=== PATIENT | male | born 1945 | race Caucasian/White ===

== ENCOUNTER 2017-11-12 05:07 | Observation (INO) | payer MEDICARE ==
[~2017-11-12] VITALS: Ht 172.7 cm; Wt 80.9 kg
--- NOTE | ~2017-11-12 | HEMODYNAMI ---
PATIENT:ELY VILLALOBOS MEDICAL RECORD: [id number] : 49 LOCATION:[facility] D.2116 ADMISSION DATE: 11/12/17 Generatedon:11/12/201710:37 Patient name: ELY VILLALOBOS Patient #: [id number] SSN: : 1945 Date of study: 11/12/2017 Page: Of Hemodynamic Procedure Report Patient Data Patient Demographics Procedure consent was obtained First Name: ELY Gender: Male Last Name: GRISELDA : 1945 Middle Initial: ANA Age: 72 year(s) Patient #: [id number] Race: Additional ID: [id number] Contact details [address]: [address] [place] [address] State: [place] City: [place] Zip code: [address] Past Medical History Allergies Allergen Reaction Date Comments Reported Other allergy 07/22/2015 VICADIN Vicodin 08/19/2016 Other allergy 11/12/2017 VICODIN, HYDROCODONE Admission Admission Data Admission Date: 11/12/2017 Admission Time: 5:07 Room #: D.2116 Height (in.): 26.77 BSA: 0.99 (m2) Height (cm.): 68 BMI: 174.61 (kg/m2) Weight (lbs.): 178 Weight (kg.): 80.74 Procedure Procedure Types Cath Procedure Diagnostic Procedure LHC LHC w/Coronaries w/Grafts Procedure Description Procedure Date Procedure Date: 11/12/2017 Procedure Start Time: 10:19 Procedure End Time: 10:37 Procedure Staff Name Function Emmanuel Salgado MD Performing Physician Stefanie Murray RT Scrub Yarely Bowden RT Monitor Tawanda Johnston RN Nurse Maco Friedman RT Literacy Tutor Procedure Data Cath Procedure Fluoroscopy Diagnostic fluoroscopy Total fluoroscopy Time: 3.2 time: 3.2 min min Diagnostic fluoroscopy Total fluoroscopy dose: 371 dose: 371 mGy mGy Contrast Material Contrast Material Type Amount (ml) Isovue 300 77 Entry Location Entry Primary Successful Side Size Upsize Upsize Entry Closure Succes sful Closure Location (Fr) 1 (Fr) 2 (Fr) Remarks Device Remarks Femoral Right 5 Fr Exoseal artery Estimated blood loss: 10 ml Diagnostic catheters Device Type Used For End Catheter Placement MULTIPACK JL 4.0 5Fr Procedure catheter MULTIPACK 3DRC 5Fr Procedure catheter DIAGNOSTIC AR MOD 5Fr Procedure Catheter ([id number]) MULTIPACK Pigtail 5 Fr Procedure catheter Procedure Complications No complications Procedure Medications Medication Administration Route Dosage Oxygen NC 2 l/min Heparin Flush Bag added to field 2 bags (1000units/500ml NS) 0.9% NaCl I.V. 100 ml/hr Fentanyl I.V. 50 mcg Versed I.V. 1 mg Fentanyl I.V. 50 mcg Versed I.V. 1 mg Plavix P.O. 75 mg Hemodynamics Rest BSA: 0.99 (m2) O2 Consumption: Estimated: 113.2 (ml/min) O2 Consumption indexed: Estimated:114.34 (ml/min/m) Heart Rate: 66 (bpm) Pressure Samples Time Site Value (mmHg) Purpose Heart Use Rate(bpm) 10:30 LV 116/14,20 Snapshot 63 Gradients Valve Time Site Site Mean SEP/DFP Peak To Heart Use 1 2 (mmHg) (sec/min) Peak Rate (mmHg) (bpm) Aortic 10:30 LV AO 63 Snapshots Pre Cath Intra NCS Post Cath Vital Signs Time Heart Resp SPO2 etCO2 NIBP (mmHg) Rhythm Pain Sedation Rate (ipm) (%) (mmHg) Status Level (bpm) 10:08:03 66 16 99 0 154/87(117) NSR 0 (11) 10(A) , No pain 10:17:45 60 15 94 36.1 147/82(108) NSR 0 (11) 10(A) , No pain 10:22:32 63 16 96 21.8 141/78(107) NSR 0 (11) 9(A) , No pain 10:27:16 64 16 96 23.3 129/79(111) NSR 0 (11) 9(A) , No pain 10:31:59 63 16 98 39.9 125/72(105) NSR 0 (11) 9(A) , No pain 10:36:42 61 16 96 36.8 122/67(79) NSR 0 (11) 9(A) , No pain Medications Time Medication Route Dose Verified Delivered Reason Notes Ef fectiveness by by 10:10:28 Oxygen NC 2 Emmanuel Neff Per l/min St. Jimi Johnston RN physician 10:11:06 Heparin Flush added 2 Emmanuel Weiry used for Bag to bags St. Jimi Johnston RN procedure (1000units/500ml field NS) 10:11:17 0.9% NaCl I.V. 100 Emmanuel Neff Per ml/hr [facility]. Jimi Johnston RN physician 10:14:49 Plavix P.O. 75 mg Emmanuel Neff for DamianCasandra Johnston RN antiplatelet therapy 10:18:41 Fentanyl I.V. 50 Emmanuel Tawanda for sedation mcg St. Jimi Johnston RN, MD 10:18:49 Versed I.V. 1 mg Emmanuel Weiry for sedation St. Jimi Johnston RN, MD 10:29:31 Fentanyl I.V. 50 Emmanuel Tawanda for sedation mcg [facility] Jimi Johnston RN, MD 10:29:35 Versed I.V. 1 mg Emmanuel Neff for sedation St. Jimi Johnston RN, MD Procedure Log Time Note 9:40:36 Tawanda Johnston RN sent for patient. Start room use. 9:51:37 Time tracking: Call back 9:51:41 Plan of Care:Hemodynamics will remain stable., Cardiac rhythm will remain stable., Comfort level will be maintained., Respiratory function will remain adequate., Patient/ family verbilizes understanding of procedure., Procedure tolerated without complication., Recovers from procedure without complications.. 9:59:25 Patient received from PCU to CCL 1 Alert and oriented. Tansferred to table in Supine position. 9:59:26 Warm blankets applied, and teresa hugger turned on for patient comfort. 9:59:26 Correct patient and procedure confirmed by team. 9:59:28 Signed procedure consent form obtained from patient. 9:59:28 ECG and BP/O2 sat monitors applied to patient. 10:02:00 Vital chart was started 10:02:02 Baseline sample Acquired. 10:02:06 Rhythm: sinus rhythm 10:02:08 Full Disclosure recording started 10:02:19 H&P Date Dictated: 11/12/2017 Within 30 days and on chart.. 10:02:35 Pre-procedure instructions explained to patient. 10:02:38 Family in waiting room. 10:02:40 Patient NPO since Midnight. 10:03:05 Patient allergic to Other allergyVICODIN, HYDROCODONE 10:03:09 Is the patient allergic to Iodine/contrast media? No. 10:03:11 Is patient on blood thinner?Yes 10:03:14 ACC The patient was administered the following blood thiners within the last 24 hours: ACCPlavix 10:03:19 Patient diabetic? No. 10:03:25 Snore? Yes 10:03:27 Sleep apnea? No 10:03:46 Patient pain scale 0/10 ?. 10:03:54 IV patent on arrival in right forearm with 0.9% NaCl at [facility]. 10:04:05 Right groin area was prepped with chlora-prep and draped in sterile fashion 10:04:07 Alarms reviewed by R. N. 10:04:08 Sharps counted by scrub and verified by R.N. 10:10:28 Oxygen 2 l/min NC was administered by Tawanda Johnston RN; Per physician; 10:11:05 Patient Weight : 178 lbs 10:11:06 Heparin Flush Bag (1000units/500ml NS) 2 bags added to field was administered by Tawanda Johnston RN; used for procedure; 10:11:08 Patient Height : 26.77 inches 10:11:17 0.9% NaCl 100 ml/hr I.V. was administered by Tawanda Johnston RN; Per physician; 10:12:23 Physician paged 10:12:39 Use device set Femoral Dx 10:12:40 Tegaderm 4 x 4 (1626W) opened to sterile field. 10:12:41 ACIST Manifold (47250) opened to sterile field. 10:12:42 ACIST Hand Control (60370) opened to sterile field. 10:12:43 ACIST Syringe (51989) opened to sterile field. 10:12:44 Bag Decanter (2002S) opened to sterile field. 10:12:44 Medline Cath Pack ([id number]) opened to sterile field. 10:12:45 SHEATH 5FR [place] (BGF126) opened to sterile field. 10:12:45 DIAGNOSTIC WIRE .035 260cm J wire (626865) opened to sterile field. 10:12:47 DIAGNOSTIC Multipack 5Fr catheter set (WT8369) opened to sterile field. 10:12:48 PERCUTANEOUS ENTRY 19GA needle opened to sterile field. 10:13:05 IV Extension Set opened to sterile field. 10:14:49 Plavix 75 mg P.O. was administered by Tawanda Johnston RN; for antiplatelet therapy; 10:18:12 --------ALL STOP TIME OUT------ 10:18:12 Final Timeout: patient, procedure, and site verified with staff and physician. All members of the team are in agreement. 10:18:16 Right groin site verified by team. 10:18:20 Physical assessment completed. ASA score P 2 - A patient with mild systemic disease as per Emmanuel Salgado MD. 10:18:25 Sedation plan: IV Moderate Sedation Medication:Versed, Fentanyl 10:18:41 Fentanyl 50 mcg I.V. was administered by Tawanda Johnston RN; for sedation; 10:18:49 Versed 1 mg I.V. was administered by Tawanda Johnston RN; for sedation; 10:19:38 Procedure started. 10:19:41 Local anesthetic to right femoral artery with Lidocaine 2% by Emmanuel Salgado MD.INITIAL ACCESS ONLY 10:20:12 A 5 Fr sheath was inserted into the Right Femoral artery 10:20:42 Zero performed for pressure channel P1 10:20:50 Zero performed for pressure channel P1 10:21:01 Zero performed for pressure channel P1 10:21:15 Zero performed for pressure channel P1 10:22:20 A MULTIPACK JL 4.0 5Fr catheter was advanced over the wire and used for Procedure. 10:23:35 LCA angiography performed. 10:23:37 Catheter removed. 10:23:50 A MULTIPACK 3DRC 5Fr catheter was advanced over the wire and used for Procedure. 10:24:42 RCA angiography performed. 10:25:03 SVG to Circ angiography performed. 10:27:41 RANDLE to LAD angiography performed. 10:27:44 Catheter removed. 10:28:23 A DIAGNOSTIC AR MOD 5Fr Catheter ([id number]) was advanced over the wire and used for Procedure. 10:29:00 SVG to RCA angiography performed. 10:29:02 Catheter removed. 10:29:11 A MULTIPACK Pigtail 5 Fr catheter was advanced over the wire and used for Procedure. 10:29:31 Fentanyl 50 mcg I.V. was administered by Tawanda Johnston RN; for sedation; 10:29:35 Versed 1 mg I.V. was administered by Tawanda Johnston RN; for sedation; 10:29:56 LV gram done using GOULD 10:30:00 Injector settings: Ml/sec: 10, Volume: 20, 10:30:21 LV hemodynamics recorded. 10:30:26 EF : 45 % 10:30:39 Catheter removed. 10:30:45 EXOSEAL 5Fr (EX500) opened to sterile field. 10:30:57 Sheath removed intact; hemostasis achieved with Exoseal to the Right Femoral artery. 10:31:04 Procedure ended.(Physican Out) 10:31:38 Fluoroscopy time 03.20 minutes. 10::42 Fluoroscopy dose: 371 mGy 10:31:42 Flurop Dose total: 371 10:31:44 Contrast amount:Isovue 300 77ml. 10:31:49 Post-op/insertion site Right Femoral artery dressed using a 4 x 4 and Tegaderm. 10:31:54 Post right femoral artery:stable, soft, clean and dry 10:32:01 Post procedure: right dorsailis pedis pulse 2+ Normal; easily identifiable; not easily obliterated. 10:32:04 Post-procedure physical assessment completed. ASA score P 2 - A patient with mild systemic disease as per Emmanuel Salgado MD. 10:32:08 Post procedure rhythm: unchanged. 10:32:11 Estimated blood loss: 10 ml 10:32:15 Post procedure instruction explained to patient.Patient verbalizes understanding. 10:32:18 Patient needs reinforcement of post procedure teaching. 10:32:57 Procedure and supply charges have been captured, reviewed, submitted and are correct. 10:33:00 Procedure Complication : No complications 10:37:08 Vital chart was stopped 10:37:09 See physician's report for complete and final results. 10:37:12 Report given to PCU. 10:37:15 Patient transfered to PCU with Bed. 10:37:17 Procedure ended. 10:37:17 Full Disclosure recording stopped 10:37:20 End room use (Document Last) Device Usage Item Name Manufacture Quantity Catalog Hospital Part Current Minimal Lot# / Number Charge Number Stock Stock Serial# Code Tegaderm 4 x 3M 1 1626W 193080 [id number] 5 4 (1626W) ACIST Acist 1 94632 353677 670932 658950 5 Manifold Medical (26259) Systems Inc ACIST Hand Acist 1 54656 947004 050791 594617 5 Control Medical (34532) Systems Inc ACIST Acist 1 84385 864682 364725 064998 20 Syringe Medical (08994) Systems Inc Bag Decanter Microtek 1 2001S 245407 00390 900910 5 (2001S) Medical Inc. Medline Cath Cardinal 1 [id number] 458689 99239 796401 5 Pack Health (CSKW99350) SHEATH 5FR Terumo 1 XHM621 239336 099513 709634 40 [place] (BUO288) DIAGNOSTIC St Armin 1 925529 938506 781160 904343 30 WIRE .035 260cm J wire (442339) DIAGNOSTIC Cardinal 1 LX9513 915513 21852 666116 30 Multipack Health 5Fr catheter set (CP8068) PERCUTANEOUS Cook Medical 1 O09489 861646 046601 5 ENTRY 19GA needle IV Extension Hospira 1 45176-57 387019 39369 015207 5 Set MULTIPACK JL Cardinal 1 755401 5 4.0 5Fr Health catheter MULTIPACK Cardinal 1 396320 5 3DRC 5Fr Health catheter DIAGNOSTIC Cardinal 1 [id number] 045038 225352 533593 15 AR MOD 5Fr Health Catheter (077208A) MULTIPACK Cardinal 1 349370 5 Pigtail 5 Fr Health catheter EXOSEAL 5Fr Cardinal 1 EX500 258513 577328 054162 10 (EX500) Health Signature Audit [place] Stage Time Signature Unsigned Intra-Procedure 11/12/2017 Yarely Bowden 10:37:40 AM RT(R) Signatures Monitor : Yarely Bowden Signature : RT Date : Time : [facility] [address] [place] [address]
--- NOTE | ~2017-11-12 | OP ---
PATIENT NAME: ELY VILLALOBOS MEDICAL RECORD: [id number] :49 LOCATION:D.M2 D.2116 ADMISSION DATE:11/12/17 SURGEON: WALI SHOEMAKER MD DATE OF OPERATION: 11/12/2017 PROCEDURE: Left heart catheterization, selective coronary angiography, right femoral artery approach. CATHETERS: A 5-Polish sheath, 5/4 left and right Janett, 5/4 pig. The procedure was tolerated. The patient returned to munoz, sheath removed. ExoSeal device was placed. Left ventriculography in 30-degree GOULD view shows mild global hypokinesis. Overall, LV function 40% to 45%. CORONARY ANATOMY: 1. Left main: Left main is free of disease. 2. LAD fills for a short period of time, then is seen filling via competitive flow. 3. Circumflex totally occluded. 4. Right coronary artery fills to the midportion of the second stent, totally occluded. BYPASS GRAFTS: 1. RANDLE to LAD widely patent throughout its course without evidence of post-anastomotic stenosis. 2. Saphenous vein graft to the OM system widely patent without evidence of post-anastomotic stenosis. 3. Saphenous vein graft to right is widely patent without post-anastomotic stenosis. IMPRESSION: Widely patent bypass grafts, minimally decreased LV function, noncardiac etiology of chest pain. TRANSINT:[id number] Voice Confirmation ID: [id number] DOCUMENT ID: [id number] WALI SHOEMAKER MD CC: [id number] DICTATION DATE: 11/12/17 1043 FLAG SIGNALMAN: 11/12/17 1335 DIS IN 11/12/17 [id number] [place] [address]
--- NOTE | ~2017-11-12 | HP ---
PATIENT: ELY VILLALOBOS MEDICAL RECORD: [id number] ACCOUNT: [id number] LOCATION:D. D.2116 : 49 ADMISSION DATE: 11/12/17 HISTORY AND PHYSICAL EXAMINATION HISTORY OF PRESENT ILLNESS: A 72-year-old old gentleman who is transferred from [place] with acute coronary syndrome. He has a history of CAD, status post coronary bypass grafting as well as history of hypertension. 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 PAST MEDICAL HISTORY: Includes; 1. History of hypertension. 2. Hyperlipidemia. 3. Gastroesophageal reflux disease. ALLERGIES: HYDROCODONE, ACETAMINOPHEN. MEDICATIONS: Include metoprolol 12.5 mg b.i.d., Plavix 75 daily, Hytrin 5 b.i.d., aspirin 81 daily, trazodone 50 at bedtime, and Prilosec 20 every day. SOCIAL HISTORY: Nonsmoker, nondrinker. He takes care of all his ADLs. Stays quite active. No set exercise program. REVIEW OF SYSTEMS: The patient reports easy bruising but reports no swollen glands. The patient reports no fever, no night sweats, no significant weight gain, no significant weight loss. No significant exercise tolerance. The patient reports no dry eyes, no irritation, no vision change. Patient reports no difficulty hearing and no ear pain. Patient reports no frequent nose bleeds or nose and sinus problems. Patient reports on arm pain on exertion. No shortness of breath while lying down. No history of heart murmur. Patient reports no cough, no wheezing or coughing up blood. Patient reports no abdominal pain, no vomiting. Normal appetite. No diarrhea and not vomiting blood. No nausea and no constipation. Patient reports no incontinence. No difficulty urinating. No hematuria. No increased frequency. Patient reports no muscle aches. No weakness, no arthralgias, no back pain. No swelling of the extremities. Patient reports no abnormal mole, no jaundice, no rashes. Reports no loss of consciousness. No weakness and no numbness. No seizures, dizziness, or headaches. The patient reports no depression, no sleep disturbance, feeling safe in a relationship and no alcohol abuse. Patient reports on fatigue. Reports no runny nose or sinus pressure. No itching, no hives, and no frequent sneezing. PHYSICAL EXAMINATION: GENERAL: Pleasant gentleman in no acute distress. VITAL SIGNS: Blood pressure 122/76, pulse 59 and regular. HEENT: Normocephalic, atraumatic. NECK: No JVD or bruit. HEART: Regular. LUNGS: Lung owens are clear. ABDOMEN: Soft, nontender. EXTREMITIES: Pulses 2+. There is no edema. DIAGNOSTIC DATA: ECG shows nonspecific ST changes, but no acute changes. HISTORY AND PHYSICAL [id number] ELY VILLALOBOS IMPRESSION: Acute coronary syndrome. PLAN: Plan for cath, visualization of anatomy. TRANSINT:[id number] Voice Confirmation ID: [id number] DOCUMENT ID: [id number] WALI SHOEMAKER MD CC: [id number] DICTATION DATE: 11/12/17913 CHILD GUIDANCE COUNSELOR: 11/12/17 1319 DIS IN 11/12/17 [facility] [address] [place] [address]
[~2017-11-12 05:07] MED LIST: BAYER CHEWABLE81 MG PO; CENTRUM COMPLE1 EACH PO; COLACE100 MG PO; HYDROCHLOROTHIA25 MG GT; HYTRIN10 MG PO; HYTRIN5 MG PO; K-DUR20 MEQ PO; MAGNESIUM OXID250 MG PO; NASAL SPRAY; PLAVIX75 MG PO; POTASSIUM99 M1 PO; PRILOSEC20 MG PO; TOPROL XL25 MG PO; ULTRAM50 MG PO
[2017-11-12] MEDS ORDERED: TRAZODONE HCL50 MG PO (05:15)
[2017-11-12 05:38] VITALS: Ht 172.7 cm; Wt 80.9 kg
[2017-11-12 05:40] VITALS: BP 154/83
[2017-11-12 07:55] VITALS: BP 122/76
== END 2017-11-12 13:30 | disposition home or self-care (01) ==
LOC: OBSVTIME 05:07 → D.M2 05:07 → UNDOADMIN 05:07 → D.M2 05:07
DX: R07.89 Other chest pain (principal); I25.10 Atherosclerotic heart disease of native coronary artery without angina pectoris; Z95.1 Presence of aortocoronary bypass graft; I10 Essential (primary) hypertension; E78.5 Hyperlipidemia, unspecified; K21.9 Gastro-esophageal reflux disease without esophagitis

== ENCOUNTER → 2020-01-22 12:54 | Outpatient (CLI) | payer MEDICARE ==
[2017-11-12 05:38] VITALS: BMI 27.1
[~2020-01-22 12:54] MED LIST changes: +TRAZODONE HCL50 MG PO
== END | disposition home or self-care (01) ==
LOC: D.HCCECHO 12:54
PROVIDERS: ATTEND Internal Medicine Cardiovascular Disease
DX: I25.10 Atherosclerotic heart disease of native coronary artery without angina pectoris (principal)